=== PATIENT | male | born 1940 | race Caucasian/White ===

== ENCOUNTER 2019-06-25 14:13 | Emergency (ER) | payer OTHER ==
[~2019-06-25] VITALS: Ht 182.9 cm; Wt 82.6 kg
[~2019-06-25 14:13] MED LIST: ASPIRIN EC81 M1; AUGMENTIN 500-1 EACH PO; BENICAR20 MG; CELEXA 20 MG TA20 M1; CELEXA 20 MG TA20 MG PO; DESYREL50 MG; DIFLUCAN200 MG PO; FLOMAX0.4 MG PO; INSULIN; LIPITOR20 MG; MULTIVITAMIN; NASONEX; NEURONTIN 300300 M1 PO; OMEGA-31000 M1; PYRIDIUM200 MG PO; TOPROL XL50 MG; TRAZODONE HCL100 MG PO; URECHOLINE 10 M10 M1 PO; VITAMIN E400 UNIT PO
[2019-06-25] MEDS ORDERED: ALENDRONATE SOD70 MG PO (14:27)
[2019-06-25] MEDS ORDERED: NEURONTIN300 MG PO (14:27)
[2019-06-25] MEDS ORDERED: ACCU-CHEK COMB1 EACH (14:27)
[2019-06-25] MEDS ORDERED: LOSARTAN-HCTZ1 EAC3 PO (14:28)
[2019-06-25] MEDS ORDERED: LIPITOR40 MG PO (14:28)
[2019-06-25] MEDS ORDERED: TOPROL XL100 MG PO (14:28)
[2019-06-25] MEDS ORDERED: PLAVIX 75 MG TA75 MG PO (14:28)
[2019-06-25] MEDS ORDERED: CELEXA 20 MG TA20 MG PO (14:28)
[2019-06-25] MEDS ORDERED: TRAZODONE HCL100 MG PO (14:29)
[2019-06-25] MEDS ORDERED: FUROSEMIDE 20 M20 MG GT (14:30)
[2019-06-25] MEDS ORDERED: NASONEX17 GM NASAL (14:30)
[2019-06-25] MEDS ORDERED: COD LIVER OIL1 EAC5 PO (14:30)
[2019-06-25] MEDS ORDERED: SUPER THERAVIT1 EACH PO (14:30)
[2019-06-25 14:57] LABS: HEMATOCRIT 34.2 % (42.0-52.0); HEMOGLOBIN 11.7 gm/dL (14.0-18.0); MCH 30.1 pg (26.0-34.0); MCHC 34.2 g/dL (28.0-37.0); MCV 88.1 fL (80.0-100.0); MPV 8.5 fl. (7.2-11.1); NUCLEATED RBCS 0 /100WBC; PLATELET COUNT* 392 thou/uL (150-400); RBC 3.88 mil/uL (4.50-6.00); RDW-CV 14.7 % (10.5-14.5); WBC 19.6 thou/uL (4.0-11.0)
[2019-06-25 15:04] LABS: CREATININE 1.7 mg/dL (0.6-1.3); POTASSIUM 4.5 mmol/L (3.5-5.1)
[2019-06-25 15:05] LABS: APTT 25.6 Seconds (25.0-31.3); CALCIUM 8.1 mg/dL (8.5-10.1); PROTIME 10.4 Seconds (9.20-11.50)
[2019-06-25 15:15] LABS: ALBUMIN 3.4 g/dL (3.4-5.0); TOTAL BILIRUBIN 0.6 mg/dL (<0.1-1.0); TOTAL PROTEIN 6.7 g/dL (6.4-8.2)
[2019-06-25 16:09] LABS: ABSOLUTE LYMPHOCYTES 13.3 thou/uL (0.8-5.3); ABSOLUTE MONOCYTES 1.2 thou/uL (0.0-1.2); ABSOLUTE NEUTROPHILS 5.1 thou/uL (1.6-8.1); PLATELET ESTIMATE ADEQUATE
[2019-06-25 18:58] VITALS: BP 101/48
--- NOTE | 2019-06-26 17:29 | EKG ---
[place] [address] ELECTROCARDIOGRAM REPORT Name: CLAUDINE SANTIZO Room: [facility]#: [id number] Admission: 06/25/19 Attend Phys: Discharge: 06/25/19 Date of : 38 Date of Service: 06/25/19 1452 Report #: [id number] THIS REPORT FOR: //name// [facility] ED Test Date: 2019-06-25 Test Time: 14:52:40 Pat Name: CLAUDINE SANTIZO Department: Room: Gender: Well Tester: [place] : 1940 Requested By: Vilma Pritchett Order Number: [id number] MD: Lowell Foster Measurements Intervals [place] Rate: 64 P: 26 ME: 242 QRS: 22 QRSD: 83 T: 33 QT: 441 QTc: 455 Interpretive Statements Sinus rhythm Early repolarization Prolonged ME interval Compared to ECG 02/04/2015 06:47:06 Atrial premature complex(es) no longer present Electronically Signed On 06-26-2019 17:27:52 CDT by Lowell Foster [email or web address] <ELECTRONICALLY SIGNED> By: Lowell Foster MD, [facility] 06/26/19 1727 1452 1452 Lowell Foster MD, [facility] /EPI
== END 2019-06-25 18:59 | disposition short-term general hospital (02) ==
LOC: M.ERS 14:13
PROVIDERS: Nurse Practitioner Family
DX: S22.41XA Multiple fractures of ribs, right side, initial encounter for closed fracture (principal); D72.829 Elevated white blood cell count, unspecified; R04.89 Hemorrhage from other sites in respiratory passages; I25.10 Atherosclerotic heart disease of native coronary artery without angina pectoris; E10.9 Type 1 diabetes mellitus without complications; E78.5 Hyperlipidemia, unspecified; Z85.46 Personal history of malignant neoplasm of prostate; Z85.820 Personal history of malignant melanoma of skin; Z79.4 Long term (current) use of insulin; W18.39XA Other fall on same level, initial encounter; Y93.89 Activity, other specified; Y92.89 Other specified places as the place of occurrence of the external cause; Y99.8 Other external cause status